=== PATIENT | male | born 1950 ===

== ENCOUNTER 2019-02-07 17:44 | Observation (INO) ==
[2019-02-07] MEDS ORDERED: Acetaminophen 325 MG TABLET PO ONE (17:48)
[2019-02-07] MEDS ORDERED: 0.9 % Sodium Chloride 1,000 ML IVC ONE (17:48)
--- NOTE | 2019-02-07 17:50 | Emergency Department Note ---
Disposition Clinical Impression: Cellulitis Qualifiers: Site of cellulitis: extremity Site of cellulitis of extremity: lower extremity Laterality: unspecified laterality Qualified Code(s): L03.119 - Cellulitis of unspecified part of limb Fever Qualifiers: Fever type: unspecified Qualified Code(s): R50.9 - Fever, unspecified Upper respiratory infection Qualifiers: URI type: unspecified URI Qualified Code(s): J06.9 - Acute upper respiratory infection, unspecified Disposition: Admitted As Inpatient Condition: Fair [facility]errals: [facility]Primary Care Provider[facility] - Forms: ED Satisfaction Letter Time of Disposition: 18:30 General Adult HPI - General Chief complaint: ED Fever Stated complaint: weakness/chills while sitting outside Time Seen by Provider: 02/07/19 17:47 Source: patient, family, EMS Mode of arrival: EMS Limitations: no limitations Nursing Notes Reviewed: Yes Vital Signs Reviewed: Yes - History of Present Illness HPI Narrative: Patient relates that he started with some chills and weakness at about 1:00 this afternoon. He states he is just sitting on the porch and he started getting cold despite that he did today. He about the same time developed a cough which was harsh and nonproductive. States he coughed point of some soreness in his abdomen but not having other abdominal pain. Reported headache that he has described as minimal. Denies plates sensitivity, neck pain or sore throat. He denies shortness of breath her chest pain. Has not had palpitations or diaphoresis. His generalized weakness but has not been presyncopal. Denies nausea, vomiting, diarrhea or any urinary troubles. He denies any ill exposures. He states he has been having trouble for months that was thought to be secondary to a cat scratch to his legs. He had been treated with antibiotics and has been off them for 2 months. He is continued with some redness and excoriation on his right more than left foot. He is with an appointment for infectious disease at [facility] on Monday. They think this is with Dr. Cortes. He has been brought in by EMS with an IV established and reported temperature about 102.7. Onset (ago): hour(s) (4) Location: chest Radiation: non-radiation Pain Severity: mild Quality: aching, dull Improves with: nothing Worsens with: nothing Associated symptoms: Reports: cough, fever/chills, headaches, malaise, weakness. Denies: confusion, chest pain, diaphoresis, loss of appetite, nausea/vomiting, rash, seizure, shortness of breath, syncope Treatments Prior to Arrival: none - Related Data Home Medications Medication Instructions Recorded Confirmed Amlodipine Besylate 10 mg PO DAILY 02/07/19 02/07/19 Carvedilol [Coreg] 25 mg PO BID 02/07/19 02/07/19 Cyclobenzaprine HCl 10 mg PO TID 02/07/19 02/07/19 Insulin Glargine,Hum.rec.anlog 70 unit SQ HS 02/07/19 02/07/19 [Lantus Solostar] glipiZIDE [Glipizide] 15 mg PO BID 02/07/19 02/07/19 Allergies Allergy/AdvReac Type Severity Reaction Status Date / Time No Known Allergies Allergy Verified 02/07/19 17:47 All systems ED: reviewed and negative except as stated. Past Medical History - Past Medical History Attestation: Yes The following information was validated with the patient. Source: patient, obtained from family, nursing notes reviewed Physical Exam - General Limitations: no limitations General appearance: alert, in no apparent distress - Head Head exam: atraumatic, normocephalic, normal inspection - Eye Eye exam: Present: normal appearance, PERRL, EOMI. Absent: scleral icterus, conjunctival injection - ENT ENT exam: normal exam, normal oropharynx, mucous membranes moist - Neck Neck exam: Present: normal inspection, full ROM, trachea midline - Chest Chest inspection: Present: normal inspection, symmetric chest wall rise. Absent: tenderness - Respiratory Respiratory exam: Present: normal lung sounds bilaterally. Absent: respiratory distress, wheezes, prolonged expiratory phase - Cardiovascular Cardiovascular exam: Present: regular rate, normal rhythm, tachycardia, normal heart sounds - Abdominal Exam Abdominal exam: Present: soft, Non-Tender, normal bowel sounds. Absent: tenderness, distention, guarding, rebound, rigidity - Expanded Lower Extremity Exam Upper leg exam: Present: normal inspection, full ROM. Absent: tenderness, swelling Knee exam: Present: normal inspection, full ROM. Absent: tenderness, swelling Lower leg exam: Present: normal inspection, full ROM. Absent: tenderness, swelling Ankle exam: Present: tenderness, swelling, erythema Foot/toe exam: Present: other (Excoriation over the distal dorsal aspect of the right foot with some maceration between the toes.) Neurovascular/Tendon exam: Present: normal capillary refill. Absent: motor deficit, sensory deficit, tendon deficit Gait: not tested/not observed - Back Exam Back exam: Present: normal inspection, full ROM. Absent: tenderness, CVA tenderness (R), CVA tenderness (L) - Neurological Exam Neurological exam: Present: alert, oriented X3, CN II-XII intact - Psychiatric Psychiatric exam: Present: normal affect, normal mood. Absent: agitated, anxious - Skin Skin exam: Present: warm, dry, normal color. Absent: diaphoresis, pallor Course Course Narrative: 1829: Care has been discussed with Dr. Walsh. Verbal orders have been obtained for this patient's observation. He would like the patient started on doxycycline and Rocephin. This has been discussed with the patient and family and they are in agreement. The plan will be for likely follow-up with infectious disease as scheduled on Monday but he will need inpatient observation at this time with IV antibiotic therapy. Vital Signs Temperature 101.5 F H 02/07/19 17:48 Pulse Rate 110 02/07/19 17:48 Respiratory Rate 18 02/07/19 17:48 Blood Pressure 146/87 02/07/19 17:48 O2 Sat by Pulse Oximetry 95 02/07/19 17:48 Temperature 101.5 F H 02/07/19 17:49 Pulse Rate 101 02/07/19 18:52 Respiratory Rate 14 02/07/19 18:52 Blood Pressure 132/82 02/07/19 18:52 O2 Sat by Pulse Oximetry 94 02/07/19 18:52 Oxygen Delivery Oxygen Delivery Room Air Medical Decision Making - Lab Data Lab results reviewed: Yes I reviewed the patient's lab results. Result diagrams: 02/07/19 18:08 02/07/19 18:08 Lab Results 02/07/19 02/07/19 02/07/19 Range/Units 18:08 18:08 18:08 WBC 16.0 H (4.3-11.1) K/mcL RBC 4.35 (4.19-5.50) M/mcL Hgb 13.3 (12.9-16.9) g/dL Hct 36.8 L (37.5-50.1) % MCV 84.6 (83.0-100.0) fL MCH 30.6 (28.0-33.3) pg MCHC 36.1 H (31.6-35.5) g/dL RDW 12.2 (11.5-14.5) % Plt Count 173 (140-400) K/mcL MPV 9.3 L (9.4-12.4) fL Immature Gran % 0.7 (0-4) % Seg Neutrophils % 86.8 % Lymphocytes % 5.7 % Monocytes % 5.5 % Eosinophils % 0.9 % Basophils % 0.4 % Neutrophils # 13.9 H (1.6-8.9) K/mcL Lymphocytes # 0.9 (0.6-4.6) K/mcL Monocytes # 0.9 (0.0-1.3) K/mcL Eosinophils # 0.1 (0.0-0.6) K/mcL Basophils # 0.1 (0.0-0.2) K/mcL Sodium 135 L (136-145) mEq/L Potassium 3.7 (3.5-5.1) mEq/L Chloride 101 (98-107) mEq/L Carbon Dioxide 24 (23-29) mEq/L BUN 15 (8-23) mg/dL Creatinine 1.03 (0.70-1.30) mg/dL Est GFR ( Amer) > 60 (> 60) Est GFR (Non-Af Amer) > 60 (> 60) BUN/Creatinine Ratio 15 (6-26) Glucose 104 (70-105) mg/dL Calculated Osmolality 281 (280-300) Lactic Acid 1.4 (0.5-2.2) mmol/L Calcium 8.6 (8.6-10.3) mg/dL Total Bilirubin 0.7 (0.3-1.0) mg/dL Direct Bilirubin 0.1 (0.0-0.2) mg/dL Indirect Bilirubin 0.6 (0.0-1.2) mg/dL AST 15 (13-39) Units/L ALT 20 (7-52) Units/L Alkaline Phosphatase 100 (34-104) Units/L Serum Total Protein 6.8 (6.4-8.9) g/dL Albumin 4.2 (3.5-5.7) g/dL Globulin 2.6 (2.4-3.5) g/dL Albumin/Globulin Ratio 1.6 (1.1-2.2) - Radiology Data Radiology results reviewed: Yes I reviewed the patient's radiology results. Impressions Chest X-Ray 02/07/19 17:49 IMPRESSION: No acute abnormality detected. D/ / Armando Stewart MD / Armando Stewart MD Interpreting Provider: Armando Stewart MD - EKG Data EKG #1 EKG attestation: Yes I reviewed and interpreted this EKG. EKG results narrative: Patient has a atrial sensed and ventricularly paced rhythm. There are no acute ST or T-wave changes with this. This is on my interpretation.
[2019-02-07 18:15] LABS: Basophils # 0.1 K/mcL (0.0-0.2); Basophils % 0.4 %; Eosinophils # 0.1 K/mcL (0.0-0.6); Eosinophils % 0.9 %; Hematocrit 36.8 % (37.5-50.1); Hemoglobin 13.3 g/dL (12.9-16.9); Immature Granulocytes % 0.7 % (0-4); Lymphocytes # 0.9 K/mcL (0.6-4.6); Lymphocytes % 5.7 %; Mean Corpuscular HGB Conc 36.1 g/dL (31.6-35.5); Mean Corpuscular Hemoglobin 30.6 pg (28.0-33.3); Mean Corpuscular Volume 84.6 fL (83.0-100.0); Mean Platelet Volume 9.3 fL (9.4-12.4); Monocytes # 0.9 K/mcL (0.0-1.3); Monocytes % 5.5 %; Neutrophils # 13.9 K/mcL (1.6-8.9); Platelet Count 173 K/mcL (140-400); Red Blood Count 4.35 M/mcL (4.19-5.50); Red Cell Distribution Width 12.2 % (11.5-14.5); Segmented Neutrophils % 86.8 %
[2019-02-07 18:28] LABS: Alanine Aminotransferase 20 Units/L (7-52); Albumin 4.2 g/dL (3.5-5.7); Albumin/Globulin Ratio 1.6 (1.1-2.2); Alkaline Phosphatase 100 Units/L (34-104); Aspartate Amino Transferase 15 Units/L (13-39); BUN/Creatinine Ratio 15 (6-26); Bilirubin,Direct 0.1 mg/dL (0.0-0.2); Bilirubin,Indirect 0.6 mg/dL (0.0-1.2); Bilirubin,Total 0.7 mg/dL (0.3-1.0); Blood Urea Nitrogen 15 mg/dL (8-23); Calcium 8.6 mg/dL (8.6-10.3); Carbon Dioxide 24 mEq/L (23-29); Chloride 101 mEq/L (98-107); Globulin 2.6 g/dL (2.4-3.5); Glucose 104 mg/dL (70-105); Osmolality,Calculated 281 (280-300); Potassium 3.7 mEq/L (3.5-5.1); Sodium 135 mEq/L (136-145); Total Protein 6.8 g/dL (6.4-8.9); eGFR For African Americans > 60 (> 60); eGFR For Non-African Americans > 60 (> 60)
[2019-02-07] MEDS ORDERED: cefTRIAXone 2,000 MG in 0.9 % Sodium Chloride Mini Bag 100 ML IVPB ONE (18:39)
[2019-02-07 19:12] LABS: Bilirubin,Urine Negative (Negative); Blood,Urine Negative (Negative); Clarity,Urine Clear (Clear); Color,Urine Yellow (Yellow); Glucose,Urine (UA) Normal (Normal); Ketones,Urine Negative (Negative); Leukocyte Esterase,Urine Negative (Negative); Nitrite,Urine Negative (Negative); Protein,Urine Negative (Neg-Trace); Urobilinogen,Urine Normal (Normal)
[2019-02-07] MEDS: Doxycycline 200 MG in 0.9 % Sodium Chloride Mini Bag 100 ML IVPB ONE ×2 (19:36→23:48)
[2019-02-07] MEDS ORDERED: Ipratropium/Albuterol Neb 3 ML IH PRN (19:57)
[2019-02-07] MEDS ORDERED: *HR* Dextrose 50 % in Water (Syg) 50 ML SYRINGE IVP PRN (19:57)
[2019-02-07] MEDS ORDERED: D5% in Water 1,000 ML IVC PRN (19:57)
[2019-02-07] MEDS ORDERED: Mag Hydrox/Al Hydrox/Simeth 30 ML UDC PO PRN (19:57)
[2019-02-07] MEDS ORDERED: Naloxone 0.4 MG/ML INJ IVP PRN (19:57)
[2019-02-07] MEDS ORDERED: MOM Conc 10 ML UD.LIQ PO PRN (19:57)
[2019-02-07] MEDS ORDERED: Dextrose Gel 15 GM/37.5 ML TUBE PO PRN ×2 (19:57)
[2019-02-07] MEDS ORDERED: Albuterol 2.5 MG/3 ML NEBULIZER IH PRN (22:32)
[2019-02-07] MEDS ORDERED: Ondansetron ODT 4 MG TAB.RAPDIS SL PRN (22:35)
[2019-02-07] MEDS ORDERED: Insulin DETEMIR 100 UNIT/ML per UNIT SQ ONE (22:45)
[2019-02-07] MEDS: GlipiZIDE 5 MG TABLET PO SCH (23:02)
[2019-02-07] MEDS: 0.9 % Sodium Chloride 1,000 ML IVC SCH (23:02)
[2019-02-07] MEDS: Doxycycline 100 MG in 0.9 % Sodium Chloride Mini Bag 100 ML IVPB SCH (23:03)
[2019-02-08] MEDS: Doxycycline 100 MG in 0.9 % Sodium Chloride Mini Bag 100 ML IVPB SCH (00:14)
[2019-02-08] MEDS ORDERED: traMADol 50 MG TABLET PO PRN (02:36)
[2019-02-08] MEDS: 0.9 % Sodium Chloride 1,000 ML IVC SCH (06:58)
[2019-02-08] MEDS ORDERED: amLODIPine 5 MG TABLET PO SCH (09:00)
[2019-02-08] MEDS: GlipiZIDE 5 MG TABLET PO SCH (09:13)
[2019-02-08] MEDS: Insulin LISPRO 300 UNITS/3 ML VIAL SQ SCH ×2 (09:16→12:47)
[2019-02-08] MEDS ORDERED: Doxycycline 200 MG in 0.9 % Sodium Chloride 250 ML IVPB SCH (10:00)
--- NOTE | 2019-02-08 10:17 | Internal Med History&Physical ---
Date of Encounter: 02/08/19 Time of Encounter: 19:00 Assessment and Plan (1) Cellulitis Current visit: Yes Status: Acute He was started on Rocephin and doxycycline in emergency room. Change Rocephin to IV vancomycin and start lactobacillus. Qualifiers: Site of cellulitis: extremity Site of cellulitis of extremity: lower extremity Laterality: unspecified laterality Qualified Code(s): L03.119 - Cellulitis of unspecified part of limb (2) Hypertension Current visit: Yes Status: Chronic Continue amlodipine and Coreg Qualifiers: Hypertension type: essential hypertension Qualified Code(s): I10 - Essential (primary) hypertension (3) DM type 2 (diabetes mellitus, type 2) Current visit: Yes Status: Chronic Continue Lantus/Levemir, glipizide, and do Accu-Cheks with SSI. Qualifiers: Diabetes mellitus senior care insulin use: with senior care use Diabetes mellitus complication status: without complication Qualified Code(s): E11.9 - Type 2 diabetes mellitus without complications; Z79.4 - FCI (current) use of insulin (4) CAD (coronary artery disease) Current visit: Yes Status: Chronic Continue Coreg and amlodipine. Qualifiers: Coronary Disease-Associated Artery/Lesion type: [place] artery [place] vs. transplanted heart: [place] heart Associated angina: without angina Qualified Code(s): I25.10 - Atherosclerotic heart disease of [place] coronary artery without angina pectoris (5) CHF (congestive heart failure) Current visit: Yes Status: Chronic Continue Coreg Qualifiers: Heart failure type: unspecified Heart failure chronicity: chronic Qualified Code(s): I50.9 - Heart failure, unspecified (6) ICD (implantable cardioverter-defibrillator) in place Current visit: Yes Status: Chronic Internal Medicine - H&P: HPI Chief complaint: Fevers and chills Admitted From: Emergency Dept Plans for Post Hospital Care: Home History of present illness: Mr. Templeton is a 68 year old male who came to emergency room stating he had developed fevers and chills a few hours earlier. He states he had a minimal cough with no productivity. Denies vomiting diarrhea or pain. He was evaluated in emergency room and was found to have bilateral leg cellulitis more on the right than the left. He was admitted to [facility] floor for ongoing care needs. He states he had a cat bite and scratches on his left leg approximately 2 months ago. He received IV antibiotics during a [place] hospitalization and seemed to have satisfactory recovery. Approximately 4 weeks later he developed bilateral redness and soreness in his feet. He returned to [place] and reports receiving capsaicin cream and being referred to [facility] infectious disease team. He has not been seen yet by ID staff. Past Med Surg Social Fam HX - Past Medical History Medical history: non-contributory, cancer, diabetes, hypertension, myocardial infarction Additional medical history: prostate cancer Psychiatric history: no psych history - Past Surgical History Surgical History: pacemaker Additional surgical history: heart cath that ended up having surgery due to an artery, TURP - Social History Smoking Status: Never smoker Smokeless Tobacco Status: No Alcohol use: none Drug use: none Internal Medicine - H&P: Meds Amlodipine Besylate 10 mg PO DAILY 02/07/19 [History] Carvedilol [Coreg] 25 mg PO BID 02/07/19 [History] Cyclobenzaprine HCl 10 mg PO TID 02/07/19 [History] Insulin Glargine,Hum.rec.anlog [Lantus Solostar] 70 unit SQ HS 02/07/19 [History] glipiZIDE [Glipizide] 15 mg PO BID 02/07/19 [History] Allergy/AdvReac Type Severity Reaction Status Date / Time No Known Allergies Allergy Verified 02/07/19 17:47 All Systems PM: A 10-system review of systems was performed and is negative for pertinent findings except as documented above in the HPI. Review of systems: Gen.: He states his weight has been stable for several months Cardiovascular: He has history of hypertension. He has known ASHD status post [place] 2013 followed by single-vessel CABG (? HERNANDEZ to LMCA). He reports AICD placement 2015 for CHF/low LVEF. He denies DVT or pulmonary embolus. Respiratory: He smoked briefly in early adulthood. He denies chronic lung disease and does not use home oxygen. He reports being referred for CANDY evaluation but did not sleep sufficient duration to make a diagnosis. GI: He denies disorders of his liver gallbladder or exocrine pancreas : He was diagnosed with prostate cancer 2014 and was treated with brachytherapy and robotic surgery. He denies other kidney bladder prostate disorders. Neurologic: He denies large distribution strokes or seizures. Endocrine: He was diagnosed with DM 2 approximately 2015. He denies known thyroid disease or hyperlipidemia Hematology/oncology: He denies blood disorders cancers or anemia Psychiatric: He denies anxiety depression or other mental health issues [place] skeletal: He denies arthritis gout or other bone joint or muscle disorders. - Constitutional Vitals: Temp Pulse Resp BP Pulse Ox 98.3 F 85 16 109/69 92 02/08/19 06:29 02/08/19 06:29 02/08/19 06:29 02/08/19 06:29 02/08/19 06:29 Exam: Gen.: He is a well-developed well-nourished male lying in bed who appears in no acute distress HEENT: Head is atraumatic and normocephalic. Eyes: EOMI. There is no scleral icterus. Mouth: Mucosa is moist. Neck: Supple and nontender. There is no thyromegaly or adenopathy noted. Heart: Regular without murmurs gallops or ectopics Lungs: No wheezes or crackles are heard. Abdomen: Abdomen slightly distended but is nontender to palpation. No masses or guarding are noted. 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 There is dried blood from some of the skin fissures on the right dorsum distant foot. No lymphangitic streaking is noted. Dorsalis pedis and posterior tibial pulses are trace to 1+ palpable. Neurologic: Mental status: He is talkative and a good historian. Cranial nerves: Smile is symmetric. Forehead wrinkles bilaterally. Tongue protrudes midline. EOMI. Motor: There is no pronator drift. Cerebellar: Finger to nose is intact bilaterally. Skin: Leg dermatitis/infection as described above. Otherwise skin is warm and dry. Internal Med - H&P Results - Labs CBC & Chem 7: 02/07/19 18:08 02/07/19 18:08 Labs: Short CBC 02/07/19 Range/Units 18:08 WBC 16.0 H (4.3-11.1) K/mcL Hgb 13.3 (12.9-16.9) g/dL Hct 36.8 L (37.5-50.1) % Plt Count 173 (140-400) K/mcL Neutrophils # 13.9 H (1.6-8.9) K/mcL BMP 02/07/19 18:08 Sodium 135 L Potassium 3.7 Chloride 101 Carbon Dioxide 24 BUN 15 Creatinine 1.03 Glucose 104 Calcium 8.6 Liver Function 02/07/19 Range/Units 18:08 Total Bilirubin 0.7 (0.3-1.0) mg/dL Direct Bilirubin 0.1 (0.0-0.2) mg/dL AST 15 (13-39) Units/L ALT 20 (7-52) Units/L Alkaline Phosphatase 100 (34-104) Units/L Albumin 4.2 (3.5-5.7) g/dL Urine 02/07/19 Range/Units 19:07 Urine Color Yellow (Yellow) Urine Clarity Clear (Clear) Urine pH 5.0 (5.0-8.0) pH Units Ur Specific [place] 1.020 (1.010-1.025) Urine Protein Negative (Neg-Trace) mg/dL Urine Glucose (UA) Normal (Normal) mg/dL - Impressions ITS Impressions Chest X-Ray 02/07/19 17:49 IMPRESSION: No acute abnormality detected. D/ / Armando Stewart MD / Armando Stewart MD Interpreting Provider: Armando Stewart MD
[2019-02-08 11:52] VITALS: BP 101/67
--- NOTE | 2019-02-08 13:49 | Discharge Summary ---
Orders not resulted at time of discharge: Pending orders 02/07/19 18:15 Culture,Blood [BC] Stat Date of Encounter: 02/08/19 Time of Encounter: 13:44 - Discharge Diagnosis (1) Cellulitis Priority: Primary Status: Acute Qualifiers: Site of cellulitis: extremity Site of cellulitis of extremity: lower extremity Laterality: unspecified laterality Qualified Code(s): L03.119 - Cellulitis of unspecified part of limb (2) Hypertension Priority: Secondary Status: Chronic Qualifiers: Hypertension type: essential hypertension Qualified Code(s): I10 - Essential (primary) hypertension (3) DM type 2 (diabetes mellitus, type 2) Priority: Secondary Status: Chronic Qualifiers: Diabetes mellitus group home insulin use: with terminal clerk use Diabetes mellitus complication status: without complication Qualified Code(s): E11.9 - Type 2 diabetes mellitus without complications; Z79.4 - assisted (current) use of insulin (4) CAD (coronary artery disease) Priority: Secondary Status: Chronic Qualifiers: Coronary Disease-Associated Artery/Lesion type: [place] artery [place] vs. transplanted heart: [place] heart Associated angina: without angina Qualified Code(s): I25.10 - Atherosclerotic heart disease of [place] coronary artery without angina pectoris (5) CHF (congestive heart failure) Priority: Secondary Status: Chronic Qualifiers: Heart failure type: unspecified Heart failure chronicity: chronic Qualified Code(s): I50.9 - Heart failure, unspecified (6) ICD (implantable cardioverter-defibrillator) in place Priority: Secondary Status: Chronic Hospital course: Mr. Templetno is a 68 year old male who came to emergency room stating he had developed fevers and chills a few hours earlier. He states he had a minimal cough with no productivity. Denies vomiting diarrhea or pain. He was evaluated in emergency room and was found to have bilateral leg cellulitis more on the right than the left. He was admitted to [facility] floor for ongoing care needs. Initial orders were written by the emergency room physician. I saw him on February 08 and performed a history and physical. He was given Rocephin and doxycycline IV in emergency room. When I saw him I change Rocephin to IV vancomycin. Lactobacillus was given. Because of insurance coverage patient requested transfer to [facility]. I spoke with Dr. Solomon at [facility] and the patient was accepted in transfer the afternoon of February 08. - Time Spent with Patient Total time spent providing and/or coordinating discharge services: - Discharge Medications Prescriptions: No Action glipiZIDE [Glipizide] 15 mg PO BID Cyclobenzaprine HCl 10 mg PO TID Carvedilol [Coreg] 25 mg PO BID Amlodipine Besylate 10 mg PO DAILY Insulin Glargine,Hum.rec.anlog [Lantus Solostar] 70 unit SQ HS Home Medications: Amlodipine Besylate 10 mg PO DAILY 02/07/19 [History] Carvedilol [Coreg] 25 mg PO BID 02/07/19 [History] Cyclobenzaprine HCl 10 mg PO TID 02/07/19 [History] Insulin Glargine,Hum.rec.anlog [Lantus Solostar] 70 unit SQ HS 02/07/19 [History] glipiZIDE [Glipizide] 15 mg PO BID 02/07/19 [History] Allergies/Adverse Reactions: Allergy/AdvReac Type Severity Reaction Status Date / Time No Known Allergies Allergy Verified 02/07/19 17:47 Date of admission: 02/07/19 19:09 [facility] care [facility] - Constitutional Vitals: Temp Pulse Resp BP Pulse Ox 98.4 F 84 15 101/67 92 02/08/19 11:50 02/08/19 11:50 02/08/19 11:50 02/08/19 11:50 02/08/19 11:50 - Patient Status Disposition: Transfer Other Condition: Fair - Discharge Instructions
[2019-02-08] MEDS ORDERED: cefTRIAXone 2,000 MG in Water for inj. (sterile) 20 ML IVPB SCH (19:00)
[2019-02-08] MEDS ORDERED: Lactobacillus 1 EACH CAP.SPRINK PO SCH (21:00)
[2019-02-08] MEDS ORDERED: Insulin DETEMIR 100 UNIT/ML X5UNITS SQ SCH (21:00)
--- NOTE | 2019-02-12 09:33 | Electrocardiograph Report ---
[place] [id number] Test Date: 2019-02-07 Pat Name: Maicol Templeton Department: EDP-12 Room: [facility] Gender: M Junior Accountant: : [id number] Requested By: Waldemar Gaines Order Number: [id number] Reading MD: Rich Jorgensen Measurements Intervals [place] Rate: 110 P: 54 SD: 126 QRS: 211 QRSD: 141 T: QT: 373 QTc: 505 Interpretive Statements Ventricular-paced complexes Electronically Signed On 02-12-2019 9:32:15 EDT by Rich Jorgensen
== END 2019-02-08 14:32 | disposition other institution (70) ==
LOC: EMEROOPIK 17:44 → INPPIK 17:44
PROVIDERS: ADMIT Internal Medicine; ATTEND Internal Medicine